=== PATIENT | female | born 1960 | race African-American/Black ===

== ENCOUNTER 2019-03-08 08:24 | Day surgery (SDC) | payer OTHER ==
[2019-03-08] MEDS ORDERED: ACETAMINOPHEN 325 MG TAB PO (14:30)
[2019-03-08] MEDS ORDERED: ONDANSETRON 4 MG INJ IV (14:30)
[2019-03-08] MEDS ORDERED: HYDROCODONE/APAP (5/325) TAB PO (14:30)
[2019-03-08] MEDS ORDERED: morphine 2 MG INJ IV (14:30)
[2019-03-08] MEDS ORDERED: MIDAZOLAM 1 MG/ML 2 ML INJ (14:35)
[2019-03-08] MEDS ORDERED: PROPOFOL 20 ML (14:49)
[2019-03-08] MEDS ORDERED: LIDOCAINE 2% (SDV) 5 ML INJ (14:49)
[2019-03-08] MEDS ORDERED: FENTAnyl 50 MCG/ML VIAL (14:51)
[2019-03-08] MEDS ORDERED: FAMOTIDINE 20 MG INJ (14:53)
[2019-03-08] MEDS ORDERED: ONDANSETRON 4 MG INJ (14:53)
[2019-03-08] MEDS ORDERED: CLINDAMYCIN 900 MG/D5W (PMX) 50 ML IVPB (14:53)
[2019-03-08] MEDS ORDERED: DEXAMETHASONE 4 MG/ML 5 ML INJ (14:53)
[2019-03-08] MEDS ORDERED: OXYCODONE/ACETAMINOPHEN (5/325) TAB PO (15:00)
[2019-03-08] MEDS ORDERED: MEPERIDINE 25 MG INJ IV (15:00)
[2019-03-08] MEDS ORDERED: PROCHLORPERAZINE 10 MG INJ IV (15:00)
[2019-03-08] MEDS ORDERED: hydrALAzine 20 MG INJ IV (15:00)
[2019-03-08] MEDS ORDERED: FENTAnyl 50 MCG/ML VIAL IV (15:00)
[2019-03-08] MEDS ORDERED: HYDROmorphONE 1 MG/5 ML IV SYRINGE IV (15:00)
[2019-03-08] MEDS ORDERED: LABETALOL HCL 20MG INJ IV (15:00)
[2019-03-08] MEDS ORDERED: DIPHENHYDRAMINE 50 MG INJ IV (15:00)
[2019-03-08] MEDS: GENTAMICIN 80 MG INJ (15:01)
[2019-03-08] MEDS: BUPIVACAINE 0.25%/EPI (SDV) 30 ML INJ (15:01)
[2019-03-08] MEDS: POLYMYXIN/BACITRACIN 1L IRRIG (15:02)
[2019-03-08] MEDS: HYDROmorphONE 1 MG/5 ML IV SYRINGE IV ×3 (15:44→16:14)
[2019-03-08] MEDS: ONDANSETRON 4 MG INJ IV (15:44)
== END 2019-03-08 18:17 | disposition home or self-care (01) ==
LOC: SDS 08:24
DX: Z90.13 Acquired absence of bilateral breasts and nipples (principal); Z85.3 Personal history of malignant neoplasm of breast; I10 Essential (primary) hypertension; F32.9 Major depressive disorder, single episode, unspecified; E66.01 Morbid (severe) obesity due to excess calories
CPT/HCPCS: 11971